=== PATIENT | female | born 1945 | race Caucasian/White ===

== ENCOUNTER → 2017-08-15 | Outpatient (CLI) | payer OTHER ==
[~2017-08-15] MED LIST: ASPIR 8181 MG PO; CENTRUM SILVER1 EAC4 PO; LIPITOR80 MG PO; LOSARTAN-HCTZ1 EAC3 PO; SERTRALINE HCL100 MG PO; TIMOLOL MALEATE5 M1 OPHTHALMIC; XALATAN2.5 ML OPHTHALMIC; ZYRTEC10 M5 PO
== END ==
LOC: RAD 01:03
DX: Z12.31 Encounter for screening mammogram for malignant neoplasm of breast (principal)

== ENCOUNTER → 2017-08-21 | Outpatient (CLI) | payer OTHER | LOC: RAD 03:17 | DX: R92.0 Mammographic microcalcification found on diagnostic imaging of breast (principal) ==

== ENCOUNTER → 2017-09-18 | Outpatient (CLI) | payer OTHER ==
--- NOTE | ~2017-09-18 | S ---
[facility] [place] [address] SURGICAL PATH RPT PROCEDURE Name: JANET PAVON Room #: REG [facility].#: [id number] Admission: 09/18/17 Date of : 45 Discharge: Report #: [id number] Path Case #: [id number] PATHOLOGY REPORT COLLECTION DATE: 09/18/2017 RECEIVED DATE: 09/18/2017 SUBMITTING PHYS: Dr. Andrew Goode OTHER PHYS: Dr. Vibha Love SPECIMEN(S) RECEIVED: A.Right breast calcs * * * * * * * * * * * * FINAL DIAGNOSIS: "Right breast calcs", image guided needle biopsy: - Benign breast with fibrocystic changes including stromal fibrosis, cyst formation, adenosis, columnar cell change, fibroadenomatoid change, and cystic apocrine metaplasia with coarse microcalcifications present; no cytologic atypia or malignancy is seen. COMMENT: [employer] Advisor slides are co-reviewed with Dr. Jennifer Velasquez. Clinical and radiographic correlation is recommended. (CLW:pit; 09/19/2017) PATHOLOGIST: Marilee Martinez M.D. REPORT ELECTRONICALLY SIGNED BY: Marilee Martinez M.D. DATE/TIME: 09/19/2017 14:43 * * * * * * * * * * * * GROSS PATHOLOGY: Received in formalin labeled "Janet Pavon, right breast calcs" is a specimen consisting of multiple cylindrical yellow-rico soft tissue cores. Within the container is a cassette which contains a 2.0 x 0.5 x 0.5 cm portion of tissue. This tissue is submitted in cassette A1. Also within the container are two Telfa pads which contain a 4.8 x 4.5 x 0.4 cm aggregate of soft tissue. These portions of tissue are submitted in cassettes A2-A5. The specimen is removed from the patient at 1142, placed in formalin at 1204, and removed from formalin at 2350 on 09/18/17. ([facility]; 09/18/2017) CLINICAL HISTORY: Right breast calcs [address] [address] SURGICAL PATH RPT PROCEDURE Name: JANET PAVON Room #: REG [facility] M..#: [id number] Admission: 09/18/17 Date of : 45 Discharge: Report #: [id number] Path Case #: [id number] INITIAL CPT CODE(S): A; 16889 Professional services performed by [facility] at [address] , [place] [address] Technical services performed by [facility] at [address] [place] [address], [address], [place] [address]. [facility] [address] [place] [id number] PHONE: [phone] DIRECTOR: Michael Granados M.D. * * * END OF REPORT * * *
== END ==
LOC: RADSTEREO 00:26
DX: N60.81 Other benign mammary dysplasias of right breast (principal); N60.11 Diffuse cystic mastopathy of right breast; N60.21 Fibroadenosis of right breast; R92.0 Mammographic microcalcification found on diagnostic imaging of breast

== ENCOUNTER 2018-05-14 05:31 | Inpatient (IN) | payer OTHER ==
[2018-05-06 11:37] LABS: URINE BILIRUBIN NEGATIVE (Negative); URINE BLOOD NEGATIVE (Negative); URINE CLARITY CLEAR; URINE COLOR YELLOW; URINE GLUCOSE-RANDOM* NEGATIVE (Negative); URINE KETONES NEGATIVE (Negative); URINE LEUKOCYTES-REFLEX 1+ (Negative); URINE NITRITE-REFLEX NEGATIVE (Negative); URINE PROTEIN (DIPSTICK) NEGATIVE (Negative); URINE SPECIFIC GRAVITY 1.025 (1.005-1.035); URINE UROBILINOGEN 0.2 E.U./dl (0.2-1.0)
[2018-05-06 11:41] LABS: HEMATOCRIT 36.1 % (37.0-47.0); HEMOGLOBIN 12.4 gm/dL (12.0-15.0); MCH 27.9 pg (26.0-34.0); MCHC 34.3 g/dL (28.0-37.0); MCV 81.4 fL (80.0-100.0); RBC 4.43 mil/uL (4.20-5.00); WBC 7.3 thou/uL (4.0-11.0)
[2018-05-06 11:43] LABS: ALBUMIN 3.9 g/dL (3.4-5.0); CALCIUM 9.8 mg/dL (8.5-10.1); CREATININE 0.6 mg/dL (0.6-1.0); POTASSIUM 4.1 mmol/L (3.5-5.1)
[2018-05-06 11:48] LABS: CASTS None Seen /LPF (None Seen); CRYSTALS None Seen /LPF (None Seen); SQUAMOUS 4-10 Moderate /LPF (0-3)
[2018-05-06 11:49] LABS: BACTERIA-REFLEX 1-9 Few /HPF (None Seen); URINE WBC-REFLEX 6-15 Few /HPF (0-5)
[2018-05-06 11:50] LABS: URINE RBC None Seen /HPF (0-2)
[~2018-05-14] VITALS: Ht 162.6 cm; Wt 85.7 kg
--- NOTE | ~2018-05-14 | D ---
[facility] [place] [address] DISCHARGE SUMMARY Name: WOODROWJANET Usman Room #: 463-P [facility] IN M.R.#: [id number] Admission: 05/14/18 Attend Phys: Christian Castañeda MD Discharge: 05/17/18 Date of : 45 Report #: [id number] THIS REPORT FOR: //name// CC: Christian Love DATE OF SERVICE: 05/17/2018 FINAL DIAGNOSIS: End-stage degenerative osteoarthritis, right hip. OPERATIVE PROCEDURE: Right total hip arthroplasty. HISTORY: This active 72-year-old female has progressive end-stage degenerative osteoarthritis of the right hip and the right knee. She has elected to go ahead with right total hip arthroplasty. HOSPITAL COURSE: The patient was admitted and taken to the operating room on 05/14/2018. She underwent right total hip arthroplasty which she tolerated well. Postoperatively, her course was largely unremarkable. She did have problems with some mild ileus and bloating, but this resolved with a GI assistance. She was able to resume a regular diet. She made good progress with therapy and appears to be active and independent, using a walker for balance. She is able to manage stairs and manage walking the halls without much difficulty. The hip wound appears to be healing nicely. The dressing is dry. X-rays look good. She seems safe and ready for discharge home with family assistance at this time. DISCHARGE MEDICATIONS: Include sertraline 100 mg at bedtime, losartan/hydrochlorothiazide 100/25 mg 1 every day, atorvastatin 80 mg every day, Zyrtec 10 mg at bedtime, Xalatan eye drops daily, multivitamins daily, Xarelto 10 mg daily, hydrocodone 5/325 one q.4h. p.r.n. for pain. She will continue gentle activity at home using a walker for balance. She is advised to call me should there be any problems or questions. We will see her in the office either this week for routine followup or the following week for suture removal. <ELECTRONICALLY SIGNED> By: Christian Castañeda MD 05/19/18 1241 [id number] 1411 Christian Castañeda MD /nt
--- NOTE | ~2018-05-14 | O ---
[facility] [place] [address] OPERATIVE REPORT Name: JANET TROY Room #: 463-P ADM IN M.R.#: [id number] Admission: 05/14/18 Attend Phys: Christian Castañeda MD Discharge: Date of : 45 Report #: [id number] THIS REPORT FOR: //name// CC: Christian Castañeda Vibha Love DATE OF SERVICE: 05/14/2018 PREOPERATIVE DIAGNOSIS: End-stage degenerative osteoarthritis, right hip. POSTOPERATIVE DIAGNOSIS: End-stage degenerative osteoarthritis, right hip. PROCEDURE: Right total hip arthroplasty. SURGEON: Christian Castañeda MD INDICATIONS: This 72-year-old female has significant diffuse degenerative osteoarthritis involving multiple joints. At this point, her principal complaint involves the right hip and the right knee both have mild flexion contractures and moderate crepitus and pain with range of motion. She has elected to go ahead with right total hip arthroplasty as the next step, but understands she will probably need right total knee arthroplasty as well. We have also discussed that her rehab may be limited to some extent given her marked right knee pain and moderate flexion contracture. DESCRIPTION OF PROCEDURE: The patient was taken to the operating room where she was placed under general anesthesia. Prophylactic intravenous antibiotics were administered. She was turned to the left lateral decubitus position. The right hip, thigh and leg were meticulously prepped and draped. A slightly curving posterolateral skin incision was made centered over the greater trochanter. This was carried through subcutaneous tissues and fascia and the gluteus exposing the posterior aspect of the hip joint. The short external rotators and capsule were taken down and tagged with several #1 Tevdek sutures. The hip was dislocated. Marked degenerative change on the femoral head and acetabulum was noted. A femoral neck osteotomy was performed and the canal was prepared with reamers and hand broaches. The Gonzalez and NephSellvana system was utilized and a size 13 Synergy stem broach seemed to fit nicely. The calcar was trimmed down to that level. The trial femoral component was removed and attention directed to the acetabulum. Good exposure was established. The acetabulum was sequentially reamed, gradually advancing to a 52 mm reamer. A 52 mm 3-hole StikTite shell was then inserted placing this in alignment with her true acetabulum. This positioned this in about 45 degrees off of vertical and about 15-20 degrees of anteversion. It was impacted into position and seated nicely. In addition, three cancellous screws were placed through the upper aspect of the shell engaging good periacetabular bone. The shell seemed to be solid and nicely positioned. A 36-mm polyethylene liner was then inserted, placing the 20-degree [address] [address] OPERATIVE REPORT Name: WOODROWJANET Room #: 463-P [facility] IN M.R.#: [id number] Admission: 05/14/18 Attend Phys: Christian Castañeda MD Discharge: Date of : 45 Report #: [id number] elevated rim at about the 10 o'clock posterior position. It seated nicely and appeared to be secure. A trial reduction was performed and the hip was nicely suited to the size 13 Synergy stem with a normal offset neck and a +0 neck length. The trial component was removed and a permanent Gonzalez and Nephew Synergy porous femoral stem size 13 was inserted. This was placed in about 15 degrees of anteversion. It seated nicely and appeared to be secure. A 36-mm head using a +0 mm neck length was then inserted on to the Dorantes taper neck. This was impacted into position. It seated nicely and it was secure. A trial reduction was performed and the hip seemed to be nicely suited with satisfactory range of motion, stability and leg length. The short external rotators were then repaired back to bone using the #1 Tevdek sutures passed through drill holes in the greater trochanter. This added to the stability in a satisfactory fashion. A single Hemovac was left in the wound exiting through a separate stab incision. The fascia was closed with multiple #1 Vicryl sutures. The subcutaneous tissues were closed with 0 Monocryl. The skin was closed with skin lucila. A sterile dressing was applied and the patient was awakened and returned to recovery room in good condition. <ELECTRONICALLY SIGNED> By: Christian Castañeda MD 05/15/18 1359 0900 1031 Christian Castañeda MD /nt
--- NOTE | ~2018-05-14 | EKG ---
[address] [place] [address] ELECTROCARDIOGRAM REPORT Name: JANET TROY Room #: PRE IN [facility]#: [id number] Admission: Attend Phys: Christian Castañeda MD Discharge: Date of : 45 Report #: [id number] THIS REPORT FOR: //name// [facility] Test Date: 2018-05-06 Test Time: 11:37:57 Pat Name: JANET TROY Department: Room: Gender: F Yard Hostler: [facility] : 1945 Requested By: Christian Castañeda Order Number: [id number] MD: Robbin Sanchez Measurements Intervals [place] Rate: 67 P: 37 CA: 156 QRS: 13 QRSD: 100 T: 266 QT: 426 QTc: 450 Interpretive Statements Sinus rhythm Abnormal R-wave progression, early transition Borderline repolarization abnormality Compared to ECG 02/08/2008 09:45:11 T-wave abnormality no longer present Electronically Signed On 05-11-2018 16:51:06 CDT by Robbin Sanchez [email or web address] <ELECTRONICALLY SIGNED> By: Robbin Sanchez MD 05/11/18 165 113 113 Robbin Sanchez MD /MORGAN
[2018-05-14 09:37] VITALS: BP 135/83
[2018-05-14 10:45] VITALS: BP 124/71
[2018-05-14 15:28] VITALS: BP 105/66
[2018-05-14 19:40] VITALS: BP 110/76
[2018-05-15 07:07] LABS: HEMATOCRIT 27.6 % (37.0-47.0); HEMOGLOBIN 9.4 gm/dL (12.0-15.0); MCH 27.4 pg (26.0-34.0); MCHC 34.2 g/dL (28.0-37.0); RBC 3.45 mil/uL (4.20-5.00); RDW 14.9 % (10.5-14.5); WBC 11.9 thou/uL (4.0-11.0)
[2018-05-15 08:35] VITALS: BP 109/63
[2018-05-15 11:49] VITALS: BP 109/63
[2018-05-15 19:24] VITALS: BP 121/53
[2018-05-16 05:51] LABS: HEMATOCRIT 25.1 % (37.0-47.0); HEMOGLOBIN 8.9 gm/dL (12.0-15.0); MCH 28.2 pg (26.0-34.0); MCHC 35.6 g/dL (28.0-37.0); MCV 79.2 fL (80.0-100.0); RBC 3.16 mil/uL (4.20-5.00); WBC 9.5 thou/uL (4.0-11.0)
[2018-05-16 07:57] VITALS: BP 120/65
[2018-05-16 19:56] VITALS: BP 137/67
[2018-05-17 05:44] LABS: ABSOLUTE NEUTROPHILS 6.2 thou/uL (1.4-8.2); BASOPHILS 0.5 % (0.0-2.0); EOSINOPHILS 0.5 % (0.0-3.0); HEMATOCRIT 24.9 % (37.0-47.0); HEMOGLOBIN 8.8 gm/dL (12.0-15.0); LYMPHOCYTES 9.9 % (24.0-44.0); MCHC 35.2 g/dL (28.0-37.0); MCV 79.4 fL (80.0-100.0); MONOCYTES 6.7 % (1.0-8.0); PLATELET COUNT 197 thou/uL (150-400); POLYS 82.4 % (36.0-66.0); RBC 3.13 mil/uL (4.20-5.00); RDW 14.9 % (10.5-14.5); WBC 7.6 thou/uL (4.0-11.0)
[2018-05-17 05:52] LABS: CREATININE 0.5 mg/dL (0.6-1.0); POTASSIUM 3.6 mmol/L (3.5-5.1)
[2018-05-17 08:00] VITALS: BP 131/75
== END 2018-05-17 13:06 | disposition home or self-care (01) | DRG 470 ==
LOC: TBA 05:31 → 4W 05:31 → PRE 05:38 → 4W 10:38 → PRE 11:00 → 4W 05-17 13:06
PROVIDERS: Hospitalist; Orthopaedic Surgery
PROC: 0SR90JZ Replacement of Right Hip Joint with Synthetic Substitute, Open Approach (ICD-10-PCS; principal; 2018-05-14)
DX: M16.11 Unilateral primary osteoarthritis, right hip (principal); D62 Acute posthemorrhagic anemia; Z79.82 Long term (current) use of aspirin; Z79.899 Other long term (current) drug therapy; I10 Essential (primary) hypertension; R33.9 Retention of urine, unspecified; K59.00 Constipation, unspecified
CPT/HCPCS: 10047; 50010; 50101; 50382; 50414; 51412; 51771; 53000; 53367; 56521; 56525; 56527; 57103; 62110; 62900; 70005

== ENCOUNTER → 2018-09-28 | Outpatient (CLI) | payer OTHER | LOC: RAD 03:09 | DX: Z12.31 Encounter for screening mammogram for malignant neoplasm of breast (principal) ==

== ENCOUNTER 2019-02-17 05:59 | Inpatient (IN) | payer OTHER ==
[2019-02-08 09:43] LABS: URINE BILIRUBIN NEGATIVE (Negative); URINE BLOOD NEGATIVE (Negative); URINE CLARITY CLEAR; URINE COLOR YELLOW; URINE GLUCOSE-RANDOM* NEGATIVE (Negative); URINE KETONES NEGATIVE (Negative); URINE NITRITE-REFLEX NEGATIVE (Negative); URINE PROTEIN (DIPSTICK) NEGATIVE (Negative); URINE SPECIFIC GRAVITY 1.025 (1.005-1.035); URINE UROBILINOGEN 0.2 E.U./dl (0.2-1.0)
[2019-02-08 09:44] LABS: HEMATOCRIT 38.5 % (37.0-47.0); HEMOGLOBIN 12.9 gm/dL (12.0-15.0); MCH 26.8 pg (26.0-34.0); MCHC 33.7 g/dL (28.0-37.0); MCV 79.7 fL (80.0-100.0); RBC 4.83 mil/uL (4.20-5.00); WBC 5.5 thou/uL (4.0-11.0)
[2019-02-08 09:47] LABS: URINE LEUKOCYTES-REFLEX 1+ (Negative)
[2019-02-08 09:55] LABS: BACTERIA-REFLEX 1-9 Few /HPF (None Seen); CASTS None Seen /LPF (None Seen); CRYSTALS None Seen /LPF (None Seen); SQUAMOUS None Seen /LPF (0-3); URINE RBC None Seen /HPF (0-2)
[2019-02-08 10:42] LABS: ALBUMIN 4.3 g/dL (3.4-5.0); CALCIUM 9.4 mg/dL (8.5-10.1); CREATININE 0.7 mg/dL (0.6-1.0); POTASSIUM 4.2 mmol/L (3.5-5.1)
[~2019-02-17] VITALS: Ht 160 cm; Wt 74.8 kg
[2019-02-17 15:22] VITALS: BP 134/65
[2019-02-17 17:48] VITALS: BP 133/64
--- NOTE | 2019-02-17 19:26 | NUR ---
Received pt from post op, admission done and IV fluids started. No pain was verbalized or noted. Hemo vac draining fresh blood, surgical site dry and intact. POC followed No sings of distress was noted nor verbalized
[2019-02-17 20:39] VITALS: BP 104/64
[2019-02-18 05:50] LABS: HEMATOCRIT 28.3 % (37.0-47.0); HEMOGLOBIN 9.7 gm/dL (12.0-15.0); MCH 27.3 pg (26.0-34.0); MCHC 34.2 g/dL (28.0-37.0); MCV 79.9 fL (80.0-100.0); RBC 3.55 mil/uL (4.20-5.00); RDW 15.9 % (10.5-14.5); WBC 9.1 thou/uL (4.0-11.0)
[2019-02-18 06:01] LABS: CALCIUM 8.5 mg/dL (8.5-10.1); CREATININE 0.6 mg/dL (0.6-1.0); POTASSIUM 3.7 mmol/L (3.5-5.1)
--- NOTE | 2019-02-18 07:24 | O ---
[facility] [place] [address] OPERATIVE REPORT Name: JANET TROY Room #: 459-P [facility] IN M.R.#: [id number] Admission: 02/17/19 ������������������ Attend Phys: Christian Castañeda MD Discharge: ������������������ Date of : 45 Report #: [id number] THIS REPORT FOR: //name// CC: Christian Castañeda Vibha Love DATE OF SERVICE: 02/17/2019 PREOPERATIVE DIAGNOSIS: End-stage degenerative osteoarthritis, right knee with varus malalignment. POSTOPERATIVE DIAGNOSIS: End-stage degenerative osteoarthritis, right knee with varus malalignment. PROCEDURE: Right total knee arthroplasty. SURGEON: Christian Castañeda MD INDICATIONS: This recently healthy and still active 73-year-old female has progressive degenerative arthritis involving multiple joints. She has successful left total knee and right total hip arthroplasty in the past. Now, she presents for right total knee arthroplasty. There, she has a flexion contracture of about 15 degrees and moderate varus malalignment with medial compartment collapse. The patient and family understand the treatment options and relative risks and benefits well and they prefer to go ahead with right total knee arthroplasty. DESCRIPTION OF PROCEDURE: The patient was taken to the operating room where she was placed under general anesthesia. Prophylactic intravenous antibiotics were administered. A femoral nerve block was also applied. The right knee and leg were meticulously prepped and draped and a thigh tourniquet inflated to 300 mmHg. An anterior longitudinal skin incision was made and carried through the medial retinaculum. The patella was reflected laterally. Marked degenerative change in all 3 compartments was noted. The Gonzalez and Nephew knee system was utilized. Intramedullary guides were used on both the femur and the tibia. The femur was best suited for a size 5 femoral component and the tibia best suited for a size 4 tibial component. The patella surface was resected and a 32 mm patellar button fit nicely. Appropriate anchor holes were created. A trial reduction was performed and a 9 mm tibial tray fit nicely. I had resected sufficient distal femur to correct the flexion contracture and the tibial resection line was contoured appropriately to correct the varus malalignment. This resulted in satisfactory position of the knee. The knee demonstrated full knee extension, but comes to a solid endpoint. Flexion appears to be beyond 140 degrees with satisfactory stability. The knee appears to be in satisfactory alignment in 5-7 degrees of valgus. The components appear to be stable and well positioned. The trial components were then removed. The intramedullary canal [address] [address] OPERATIVE REPORT Name: JANET TROY Room #: 459-P [facility] IN ..#: [id number] Admission: 02/17/19 ������������������ Attend Phys: Christian Castañeda MD Discharge: ������������������ Date of : 45 Report #: [id number] was blocked with a bone block on both the femoral and tibial sides. Methyl methacrylate cement was mixed and injected into the porous surface of the proximal tibia. The Gonzalez and Nephew size 4 tibial base plate was then applied. This was positioned appropriately and advanced into good position and excess cement was removed around its margin. The size 9 mm Legion cruciate retaining polyethylene insert was then applied, this was snapped into position and it seated nicely and appeared to be secure. The size 5 right Legion cruciate retaining femoral component was then applied. Some cement was used distally as the bone was moderately osteoporotic at the anchor sites. This component also seated nicely and appeared to be secure. The knee once again demonstrated full knee extension and flexion to 140 degrees with satisfactory alignment and stability. Excess cement was removed from the margin of the components. Gentle pressure was held as the cement hardened. The size 32 mm patellar button was cemented into place and secured with a patellar clamp, which was also held until the cement was fully cured. At this point, alignment, range of motion and stability were once again assessed and felt to be satisfactory. The tourniquet was then deflated after a total tourniquet time of 43 minutes. A single Hemovac was left in the wound exiting through a separate stab incision. The fascia was closed with multiple #1 Vicryl sutures. The subcutaneous tissues were closed with 0 Monocryl. The skin was closed with skin lucila. A sterile dressing was applied. The patient was awakened and returned to the recovery room in good condition. ��������������������������������������������� <ELECTRONICALLY SIGNED> ���������������������������������������� By: Christian Castañeda MD ��������������������������������������������� 02/18/19 0724 1559 1633 Christian Castañeda MD /nt
[2019-02-18 08:00] VITALS: BP 122/79
--- NOTE | 2019-02-18 08:50 | NUR ---
progress pt progressing pain controlled with oral meds, vss, ivf's infusing as ordered. right foot warm with snensation intact good pedal pulse able to pedal and dorsi flex without difficulty,states her leg just feels heavy able to lift leg approx 4 to 5 inches off bed. ice packs applied as ordered, scds and teds in place post op abt's given as ordered. pt refuses to get oob to try bsc incontinent x 2 of large amount of urine, bladder scan revealed 568 ml's pt placed on bedpan voided 450 bladder scan revealed 301ml's denies discomfort, voided another 550 shortly after. tolerating diet drinking adequate amounts of water. continue to monitor
[2019-02-18 13:54] VITALS: BP 122/79
--- NOTE | 2019-02-18 14:06 | NUR ---
PATIENT DOING WELL FOR POSTOP DAY #1. PAIN WELL CONTROLLED WITH HYDROCODONE. TOLERATING REGULAR DIET. DRINKING PLENTY OF FLUIDS. UP WITH PHYSICAL THERAPY AND TOLERATING WELL. HAS SAT UP IN CHAIR SINCE MID MORNING AND TOLERATED WELL. GOOD PEDAL PULSES. LUNGS CLEAR. HOPING TO GO HOME TOMORROW.
[2019-02-18 15:00] VITALS: BP 109/49
[2019-02-18 19:21] VITALS: BP 92/44
--- NOTE | 2019-02-19 03:58 | NUR ---
ASSUMED CARE OF PT AT 1900HRS. PT AOX4 AND LETS NEEDS BE KNOWN. FALL PRECAUTION IN PLACE. PT COMPLAINED OF SOME SURGICAL PAIN AND WAS GIVEN PAIN MEDS. PT WAS ABLE TO GET COMFORTABLE AND GET SOME SLEEP. NO OTHER S/S OF ACUTE DISTRESS. WILL CONTINUE TO MONITOR.
[2019-02-19 05:08] LABS: HEMATOCRIT 24.3 % (37.0-47.0); HEMOGLOBIN 8.3 gm/dL (12.0-15.0); MCH 27.3 pg (26.0-34.0); MCHC 34.2 g/dL (28.0-37.0); MCV 79.7 fL (80.0-100.0); RBC 3.05 mil/uL (4.20-5.00); RDW 15.8 % (10.5-14.5); WBC 8.3 thou/uL (4.0-11.0)
[2019-02-19 05:20] VITALS: BP 126/65
[2019-02-19 08:44] VITALS: BP 108/57
[2019-02-19 13:50] VITALS: BP 108/57
--- NOTE | 2019-02-19 15:27 | NUR ---
PT A&OX4, VSS, DICHARGED HOME. PATIENT TOLERATED PHYSICAL THERAPY WELL. WOUND VAC REMOVED, 60MLS OFF, IV REMOVED. PATIENT HAS ALL BELONGINGS, VERBALIZED UNDERSTANDING OF DISCHARGE AND PRESCRIPTION PAPERWORK.
== END 2019-02-19 15:35 | disposition home or self-care (01) | DRG 470 ==
LOC: TBA 05:59 → 4W 05:59 → PRE 08:38 → 4W 17:28
PROVIDERS: Nurse Practitioner Family; ADMIT Orthopaedic Surgery
PROC: 0SRC0J9 Replacement of Right Knee Joint with Synthetic Substitute, Cemented, Open Approach (ICD-10-PCS; principal; 2019-02-17)
DX: M17.11 Unilateral primary osteoarthritis, right knee (principal); Z96.652 Presence of left artificial knee joint; I10 Essential (primary) hypertension; E78.5 Hyperlipidemia, unspecified; F32.9 Major depressive disorder, single episode, unspecified; G43.909 Migraine, unspecified, not intractable, without status migrainosus; Z96.641 Presence of right artificial hip joint; J30.9 Allergic rhinitis, unspecified; Z79.899 Other long term (current) drug therapy; Z79.82 Long term (current) use of aspirin
CPT/HCPCS: 10047; 50010; 50101; 50415; 50954; 51130; 51225; 51412; 51771; 53364; 56525; 57095; 57103; 57104; 57180; 62110; 62900; 70005

== ENCOUNTER → 2019-09-29 | Outpatient (CLI) | payer OTHER | LOC: RAD 09:08 | DX: Z12.31 Encounter for screening mammogram for malignant neoplasm of breast (principal) ==

== ENCOUNTER → 2020-12-01 | Outpatient (CLI) | payer OTHER | LOC: LAB 10:11 | PROVIDERS: ATTEND Specialist | DX: Z01.812 Encounter for preprocedural laboratory examination (principal); Z20.822 Contact with and (suspected) exposure to COVID-19 ==